=== PATIENT | male | born 1965 | race Caucasian/White ===

== ENCOUNTER 2020-06-16 07:09 | Emergency (ER) | payer OTHER ==
[~2020-06-16] VITALS: Ht 182.9 cm; Wt 127.0 kg
[2020-06-16 07:09] VITALS: BP_SYST 146
--- NOTE | 2020-06-16 07:17 | NUR ---
Patient to ER bed 7 to gown for evaluation. Side rails up. Report given to LOUISE Gillis.
--- NOTE | 2020-06-16 07:20 | NUR ---
Pt walked in to ER with c/o left eye pain, 7/10 x2 days. Left eye appears red and swollen. V/S are stable, pt is afebrile. Currently resting in bed, will continue to monitor.
--- NOTE | 2020-06-16 07:30 | NUR ---
ER Dr. Galarza at bedside examining patient.
--- NOTE | 2020-06-16 07:50 | NUR ---
Patient given written and verbal discharge instructions and verbalizes understanding. ER MD discussed with patient the results and treatment provided. Patient in stable condition. ID arm band removed. Prescriptions of Polymyxin B and Voltaren given. Patient educated on pain management and to follow up with PMD. Pain Scale 0. Opportunity for questions provided and answered. Medication side effect fact sheet provided.
[2020-06-16 07:59] VITALS: BP_SYST 146
== END 2020-06-16 07:50 | disposition home or self-care (01) ==
LOC: SED 07:09
DX: H00.016 Hordeolum externum left eye, unspecified eyelid (principal)
CPT/HCPCS: 99283